=== PATIENT | female | born 1960 | race Caucasian/White ===

== ENCOUNTER 2021-08-07 07:30 | Observation (INO) ==
[2021-08-07] MEDS ORDERED: ANCEF VIAL 1 GRAM ONE (12:11)
[2021-08-07] MEDS ORDERED: NS 100 ML IV 100 ML ONE (12:12)
[2021-08-07] MEDS ORDERED: NS 1,000 ML IV 1,000 ML ONE (12:12)
[2021-08-07] MEDS ORDERED: REGLAN INJ 10 MG VIAL ONE (13:06)
[2021-08-07] MEDS ORDERED: ZOFRAN INJ 4 MG VIAL ONE (13:06)
[2021-08-07] MEDS ORDERED: BRIDION ONE (13:06)
[2021-08-07] MEDS ORDERED: PEPCID 20 MG VIAL ONE (13:06)
[2021-08-07] MEDS ORDERED: ZEMURON 100 MG VIAL ONE (13:06)
[2021-08-07] MEDS ORDERED: DIPRIVAN VIAL 20 ML ONE (13:06)
[2021-08-07] MEDS ORDERED: VERSED ONE (13:07)
[2021-08-07] MEDS ORDERED: FENTANYL VIAL INJ 100 mcg ONE (13:07)
[2021-08-07] MEDS ORDERED: PROVENTIL NEB TX 0.083% 2.5MG/ 3ML ONE (13:07)
[2021-08-07 13:09] VITALS: BMI 41.9
[2021-08-07] MEDS ORDERED: MARCAINE 0.25% INJ ONE (13:09)
[2021-08-07] MEDS ORDERED: PROVENTIL NEB TX 0.083% 2.5MG/ 3ML NEB ONE (13:11)
[2021-08-07] MEDS ORDERED: XYLOCAINE 2 % (PLAIN) ONE (13:21)
[2021-08-07] MEDS ORDERED: SUPRANE ONE ×2 (13:21→14:47)
[2021-08-07] MEDS ORDERED: TORADOL 30 MG VIAL ONE (13:52)
[2021-08-07] MEDS ORDERED: OFIRMEV IV 1000 MG VIAL 1,000 MG/100 ML VIAL IV ONE (13:52)
[2021-08-07] MEDS ORDERED: HYDROGEN PEROXIDE 3% ONE (15:39)
[2021-08-07] MEDS ORDERED: BENADRYL INJ 50 MG VIAL IVP PRN (16:00)
[2021-08-07] MEDS ORDERED: BARHEMSYS INJ IVP PRN (16:00)
[2021-08-07] MEDS ORDERED: DILAUDID INJ ONE (16:00)
[2021-08-07] MEDS ORDERED: ZOFRAN INJ 4 MG VIAL IVP PRN ×2 (16:00→16:07)
[2021-08-07] MEDS ORDERED: REGLAN INJ 10 MG VIAL IVP PRN (16:00)
[2021-08-07] MEDS ORDERED: PHENERGAN INJ 25 MG IM PRN (16:00)
[2021-08-07] MEDS: DILAUDID INJ IVP PRN ×2 (16:01→16:07)
[2021-08-07] MEDS ORDERED: TYLENOL 325 MG TAB PO PRN (16:07)
[2021-08-07] MEDS ORDERED: DILAUDID INJ IVP PRN (16:09)
[2021-08-07] MEDS ORDERED: COLACE CAP 100 MG PO SCH (21:00)
[2021-08-08 05:57] LABS: BLOOD UREA NITROGEN 24 mg/dL (7-18); CALCIUM 8.2 mg/dL (8.5-10.1); CARBON DIOXIDE 29.4 mmol/L (21-32); CHLORIDE 103 mmol/L (98-107); CREATININE 1.11 mg/dL (0.55-1.02); SODIUM 140 mmol/L (136-145); eGFR NON BLACK RACES 53 (>60)
[2021-08-08 07:19] LABS: BASOPHILS # (AUTO) 0.1 X10^3/uL (0.0-0.1); BASOPHILS % (AUTO) 0.5 % (0.2-1.0); EOSINOPHILS # (AUTO) 0.2 x10^3/uL (0.0-0.2); EOSINOPHILS % (AUTO) 2.3 % (0.9-2.9); HEMATOCRIT 35.6 % (36.0-47.0); HEMOGLOBIN 11.7 g/dL (12.0-16.0); LYMPHOCYTES # (AUTO) 1.8 X10^3/uL (1.3-2.9); LYMPHOCYTES % (AUTO) 18.1 % (21.0-51.0); MEAN CORPUSCULAR HEMOGLOBIN 28.8 pg (27.0-34.0); MEAN CORPUSCULAR VOLUME 87.3 fL (80.0-100.0); MEAN PLATELET VOLUME 9.4 fL (7.4-11.0); MONOCYTES # (AUTO) 0.7 x10^3/uL (0.3-0.8); MONOCYTES % (AUTO) 7.4 % (0.0-13.0); NEUTROPHILS # (AUTO) 7.2 x10^3/uL (2.2-4.8); NEUTROPHILS % (AUTO) 71.7 % (42.0-75.0); RED BLOOD COUNT 4.07 X10^6/uL (3.5-5.4); RED CELL DISTRIBUTION WIDTH 15.5 % (11.6-16.5)
[2021-08-08 08:41] VITALS: BP 132/72
[2021-08-08] MEDS: PERCOCET TAB 5/325 MG PO PRN ×2 (08:42→13:07)
[2021-08-08] MEDS ORDERED: LOVENOX INJ 40 MG SYR SC SCH (09:00)
[2021-08-08] MEDS ORDERED: K-DUR TAB 20 MEQ PO ONE (09:59)
[2021-08-08] MEDS ORDERED: KLOR-CON PO PRN (10:05)
[2021-08-08] MEDS ORDERED: POTASSIUM CHLORIDE LIQ 20 MEQ UDC PO PRN (10:05)
[2021-08-08] MEDS ORDERED: K-RIDER 10 MEQ/NS 100 ML 10 MEQ/100 ML BAG IV PRN (10:05)
[2021-08-08] MEDS ORDERED: POTASSIUM CHL 40 MEQ/NS 0.45% 500 ML IV PRN (10:05)
[2021-08-08] MEDS ORDERED: POTASSIUM CHL 60 MEQ/NS 0.45% 500 ML IV PRN (10:05)
[2021-08-08] MEDS ORDERED: K-DUR TAB 20 MEQ PO PRN (10:05)
[2021-08-08] MEDS ORDERED: MICRO K EXTEN CAP 10 MEQ PO PRN (10:05)
--- NOTE | 2021-08-08 12:13 | PCM.PROG ---
Progress Note Progress Note for Day of Date of Exam: 08/08/21 Subjective Subjective: Mrs. Cramer is 61 yo female who is s/p left LE reconstructions with application of ex-fix. She is doing well with no pain. She is with VSS and NAD. She denies any f/c/n/v/sob/calf pain. Past Medical Family Social History Past Med/Fam/Surg Hx: No changes since H&P Allergies: Allergies No Known Drug Allergies Allergy (Verified 08/07/21 12:42) Vital Signs and I&O's Vital Signs: Temperature 99.1 F Pulse Rate [Left Radial] 80 Pulse Rate 69 Respiratory Rate 16 Blood Pressure [Left Arm] 132/72 Blood Pressure 135/65 O2 Sat by Pulse Oximetry 96 Intake and Output: Intake & Output 08/05/21 08/06/21 08/07/21 08/08/21 23:59 23:59 23:59 23:59 Intake Total 2523 / 2523 80 / 80 Output Total 2048 / 2048 Balance 475 / 475 80 / 80 Physical Exam Musculoskeletal: Left (Left LE with ex -fix applied. Dressing c/d/i with no strike through. Patient able to move digits. No senstion to the digits. Cap fill less than 3 secs. ) Mood Description: Calm Speech Pattern: Clear and Appropriate Laboratory and Diagnostics Result Diagrams: 08/08/21 05:17 08/08/21 05:17 Labs: Laboratory WBC 10.0 X10^3/uL (3.6-10.0) 08/08/21 05:17 RBC 4.07 X10^6/uL (3.5-5.4) 08/08/21 05:17 Hgb 11.7 g/dL (12.0-16.0) L 08/08/21 05:17 Hct 35.6 % (36.0-47.0) L 08/08/21 05:17 MCV 87.3 fL (80.0-100.0) 08/08/21 05:17 MCH 28.8 pg (27.0-34.0) 08/08/21 05:17 MCHC 33.0 g/dL (33.0-35.0) 08/08/21 05:17 RDW 15.5 % (11.6-16.5) 08/08/21 05:17 Plt Count 224 X10^3/uL (150.0-450.0) 08/08/21 05:17 MPV 9.4 fL (7.4-11.0) 08/08/21 05:17 Neut % (Auto) 71.7 % (42.0-75.0) 08/08/21 05:17 Lymph % (Auto) 18.1 % (21.0-51.0) L 08/08/21 05:17 [place] % (Auto) 7.4 % (0.0-13.0) 08/08/21 05:17 Eos % (Auto) 2.3 % (0.9-2.9) 08/08/21 05:17 Baso % (Auto) 0.5 % (0.2-1.0) 08/08/21 05:17 Neut # (Auto) 7.2 x10^3/uL (2.2-4.8) H 08/08/21 05:17 Lymph # (Auto) 1.8 X10^3/uL (1.3-2.9) 08/08/21 05:17 [place] # (Auto) 0.7 x10^3/uL (0.3-0.8) 08/08/21 05:17 Eos # (Auto) 0.2 x10^3/uL (0.0-0.2) 08/08/21 05:17 Baso # (Auto) 0.1 X10^3/uL (0.0-0.1) 08/08/21 05:17 Absolute Nucleated RBC 0.1 /100WBC 08/08/21 05:17 Sodium 140 mmol/L (136-145) 08/08/21 05:17 Corrected Sodium TNP 08/08/21 05:17 Potassium 3.0 mmol/L (3.5-5.1) L* 08/08/21 05:17 Chloride 103 mmol/L (98-107) 08/08/21 05:17 Carbon Dioxide 29.4 mmol/L (21-32) 08/08/21 05:17 BUN 24 mg/dL (7-18) H 08/08/21 05:17 Creatinine 1.11 mg/dL (0.55-1.02) H 08/08/21 05:17 Est GFR (MDRD) Af Amer > 60 (>60) 08/08/21 05:17 Est GFR (MDRD) Non-Af 53 (>60) L 08/08/21 05:17 Glucose 104 mg/dL (65-99) H 08/08/21 05:17 Calcium 8.2 mg/dL (8.5-10.1) L 08/08/21 05:17 SARS CoV-2 RNA Rapid LINDA Negative (NEGATIVE) 08/07/21 12:42 Plan (1) Charcot's joint of left ankle: Status: Acute Plan: Mrs. Cramer is s/p left LE surgery with application of Ex/fix, DOS was 3. She is doing well with no pain, VSS and NAD. Plan: Keep dressing intact Elevated 2 pillows NWB on the Left LE Pending PT eval Rx's in the chart Patient is to follow up with Dr. Gonzalez in clinic. Once patient is stable and pain well controlled we are of for discharge. Please do hesitate to contact me with questions or concerns. Tyler Thomas DPM Fellow [phone]
== END 2021-08-08 13:10 | disposition home or self-care (01) ==
LOC: MED/SURG → EDUNIT# 07:30
PROVIDERS: ADMIT Obstetrics & Gynecology Obstetrics; ATTEND Obstetrics & Gynecology Obstetrics
PROC: APEXFIX (2021-08-07 12:15)

== ENCOUNTER 2021-08-22 17:30 | Inpatient (IN) ==
[2021-08-22] MEDS ORDERED: NS 1,000 ML IV 1,000 ML IV ONE (17:57)
--- NOTE | 2021-08-22 18:07 | DR.EXTPAIN ---
HPI Time seen Time Seen by Provider: 08/22/21 17:56 PCP Primary Care Physician: Misael Complaint/Symptoms Chief Complaint Doctor Comments: 61 y/o female sent over for admission. Had an external fixator placed 08/07, due to Chacot foot. Started with swelling, erythema and d/c several days ago. Was started on cephalexin several days ago as well. Has h/o chronic neuropathy. Having some pain of the left foot/leg, dull, constant, does not radiate. Is worse with ambulation, nothing makes it better. Denies fever, chills, cough, dyspnea, nausea or vomiting. No changes in bowel/bladder. Chief Complaint:: Pt states she was sent to the ED by Dr Gonzalez for admission and IV antibiotics, pt has an external fixator in place from 08/07/21. Pt states the site is infected and has swelling, drainage, and has been running intermittent f ever. Pt reports she has been on antibiotics since Thursday. COVID-19 Coronavirus risk:travel/contact w/high risk person: No Has patient experienced Coronavirus symptoms: No Nurses notes reviewed Nurses Notes Review: Yes Source History Provided: Patient and Significant Other Mode of arrival Mode of Arrival: Wheelchair Timing Onset of Chief Complaint: 08/17/21 PMH PMH Past Medical History: Yes Past Medical History: GERD, Hypertension and Hypothyroidism Past Medical History Comment: fibromyalgia, neuropathy, h/ Charcot joint Past Surgical History: Yes Surgical History: Appendectomy, Hysterectomy and Other Past Surgical History Comment: left lower leg Family History History of Family Medical Conditions: Yes Family Medical History: Diabetes Mellitus, Cancer, Coronary Artery Disease and Hypertension Social History Alcohol Use: None Do you use any recreational Drugs:: No Lives With: Spouse Lives Where: Home Travel Risk Coronavirus risk:travel/contact w/high risk person: No Has patient experienced Coronavirus symptoms: No Infectious screening Have you traveled outside the country in the last 6 months?: No Isolation: Standard ROS Review of Systems Constitutional: No Symptoms Reported Eyes: No Symptoms Reported ENTM: No Symptoms Reported Respiratoy: No Symptoms Reported Cardiovascular: No Symptoms Reported Gastrointestinal/Abdominal: No Symptoms Reported Genitourinary: No Symptoms Reported Neurological: No Symptoms Reported Musculoskeletal: Left, Leg and Foot Integumentary: Wound (surgical, LLE) Hematologic/Lymphatic: No Symptoms Reported Psychiatric: No Symptoms Reported All Other Systems: Reviewed and Negative PE Vital Signs Vitals: Temperature 96.8 F Pulse Rate 63 Respiratory Rate 18 Blood Pressure [Left Arm] 132/72 O2 Sat by Pulse Oximetry 97 General Limitations: No Limitations General Appearance: Alert and In No Apparent Distress Head Head Exam: Normal Inspection Eyes Eye exam: PERRL and EOMI ENT ENT Exam: Normal Exam Neck Neck Exam: Normal Inspection and Full ROM Chest Chest Inspection: Normal Inspection Respiratory Respiratory Exam: Normal Lung Sounds Bilat; negative Accessory Muscle Use and Respiratory Distress Respiratory Exam: Bilateral: Clear to Auscultation Cardiovascular Cardiovascular Exam: Regular Rate, Normal Rhythm and Normal Heart Sounds Abdominal Exam Abdominal Exam: Normal Inspection and Soft; negative Tenderness Lower Extremities Lower Leg Exam: Swelling (LLE, external fixator in place, + purulent drainage from several of the surgical wounds, + confluent erythema. 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 Having infection of her LLE, s/p external fixator placement 2 weeks ago. W/u initiated. 2009 - labs acceptable. Pt presented to covering hospitalist, Dr Ruvalcaba, will admit. Will consult with Dr Gonzalez, reportedly planning to remove the external fixator tomorrow. Will treat with IV Zosyn, and use IV dilaudid prn pain. ROR Labs Reviewed Laboratory Results Reviewed?: Yes Result Diagrams: 08/22/21 18:07 08/22/21 18:07 Laboratory: WBC 11.3 X10^3/uL (3.6-10.0) H 08/22/21 18:07 RBC 4.22 X10^6/uL (3.5-5.4) 08/22/21 18:07 Hgb 11.9 g/dL (12.0-16.0) L 08/22/21 18:07 Hct 36.2 % (36.0-47.0) 08/22/21 18:07 MCV 85.7 fL (80.0-100.0) 08/22/21 18:07 MCH 28.2 pg (27.0-34.0) 08/22/21 18:07 MCHC 32.9 g/dL (33.0-35.0) L 08/22/21 18:07 RDW 15.2 % (11.6-16.5) 08/22/21 18:07 Plt Count 319 X10^3/uL (150.0-450.0) 08/22/21 18:07 MPV 8.6 fL (7.4-11.0) 08/22/21 18:07 Neut % (Auto) 74.2 % (42.0-75.0) 08/22/21 18:07 Lymph % (Auto) 17.3 % (21.0-51.0) L 08/22/21 18:07 [place] % (Auto) 2.7 % (0.0-13.0) 08/22/21 18:07 Eos % (Auto) 5.1 % (0.9-2.9) H 08/22/21 18:07 Baso % (Auto) 0.7 % (0.2-1.0) 08/22/21 18:07 Neut # (Auto) 8.4 x10^3/uL (2.2-4.8) H 08/22/21 18:07 Lymph # (Auto) 2.0 X10^3/uL (1.3-2.9) 08/22/21 18:07 [place] # (Auto) 0.3 x10^3/uL (0.3-0.8) 08/22/21 18:07 Eos # (Auto) 0.6 x10^3/uL (0.0-0.2) H 08/22/21 18:07 Baso # (Auto) 0.1 X10^3/uL (0.0-0.1) 08/22/21 18:07 Absolute Nucleated RBC 0.1 /100WBC 08/22/21 18:07 Sodium 134 mmol/L (136-145) L 08/22/21 18:07 Corrected Sodium 135 mmol/L (136-145) L 08/22/21 18:07 Potassium 3.5 mmol/L (3.5-5.1) 08/22/21 18:07 Chloride 98 mmol/L (98-107) 08/22/21 18:07 Carbon Dioxide 29.2 mmol/L (21-32) 08/22/21 18:07 BUN 22 mg/dL (7-18) H 08/22/21 18:07 Creatinine 1.09 mg/dL (0.55-1.02) H 08/22/21 18:07 Est GFR (MDRD) Af Amer > 60 (>60) 08/22/21 18:07 Est GFR (MDRD) Non-Af 54 (>60) L 08/22/21 18:07 Glucose 160 mg/dL (65-99) H 08/22/21 18:07 Lactic Acid 1.4 mmol/L (0.4-2.0) 08/22/21 18:07 Calcium 8.7 mg/dL (8.5-10.1) 08/22/21 18:07 Corrected Calcium 9.7 mg/dL (8.5-10.1) 08/22/21 18:07 Total Bilirubin 0.20 mg/dL (0.2-1.0) 08/22/21 18:07 AST 11 Units/L (15-37) L 08/22/21 18:07 ALT 17 Units/L (12-78) 08/22/21 18:07 Alkaline Phosphatase 113 Units/L (46-116) 08/22/21 18:07 Total Protein 7.1 g/dL (6.4-8.2) 08/22/21 18:07 Albumin 2.8 g/dL (3.4-5.0) L 08/22/21 18:07 Globulin 4.3 g/dL (2.5-4.5) 08/22/21 18:07 Albumin/Globulin Ratio 0.7 Ratio (1.1-2.1) L 08/22/21 18:07 Specimen Type Clean catch urine 08/22/21 18:15 Urine Color Yellow (YELLOW) 08/22/21 18:15 Urine Appearance Clear (CLEAR) 08/22/21 18:15 Urine pH 7.0 (5.0 - 8.0) 08/22/21 18:15 Ur Specific [place] 1.005 (1.000-1.030) 08/22/21 18:15 Urine Protein Negative (NEGATIVE) 08/22/21 18:15 Urine Glucose (UA) Negative (NEGATIVE) 08/22/21 18:15 Urine Ketones Negative (NEGATIVE) 08/22/21 18:15 Urine Blood Negative (NEGATIVE) 08/22/21 18:15 Urine Nitrite Negative (NEGATIVE) 08/22/21 18:15 Urine Bilirubin Negative (NEGATIVE) 08/22/21 18:15 Urine Urobilinogen Normal (NORMAL) 08/22/21 18:15 Ur Leukocyte Esterase Negative (NEGATIVE) 08/22/21 18:15 SARS CoV-2 RNA Rapid LINDA Negative (NEGATIVE) 08/22/21 18:06 Other Results Comments: Labs acceptable. Opioid Opioid Risk Tool Age (Tomas box if 16-45): No Total: 0 Total Score Risk Category: Low Risk Copyright: Rosas LESTER predicting aberrant behaviors Diagnosis Discharge Problem: Cellulitis of left leg
[2021-08-22] MEDS ORDERED: NS 1,000 ML IV 1,000 ML ONE (18:12)
[2021-08-22 18:31] LABS: BASOPHILS # (AUTO) 0.1 X10^3/uL (0.0-0.1); EOSINOPHILS # (AUTO) 0.6 x10^3/uL (0.0-0.2); EOSINOPHILS % (AUTO) 5.1 % (0.9-2.9); HEMATOCRIT 36.2 % (36.0-47.0); HEMOGLOBIN 11.9 g/dL (12.0-16.0); MEAN CORPUSCULAR HGB CONC 32.9 g/dL (33.0-35.0); MONOCYTES # (AUTO) 0.3 x10^3/uL (0.3-0.8); WHITE BLOOD COUNT 11.3 X10^3/uL (3.6-10.0)
[2021-08-22 18:37] LABS: BASOPHILS % (AUTO) 0.7 % (0.2-1.0); LYMPHOCYTES % (AUTO) 17.3 % (21.0-51.0); MEAN CORPUSCULAR HEMOGLOBIN 28.2 pg (27.0-34.0); MEAN CORPUSCULAR VOLUME 85.7 fL (80.0-100.0); MEAN PLATELET VOLUME 8.6 fL (7.4-11.0); MONOCYTES % (AUTO) 2.7 % (0.0-13.0); NEUTROPHILS # (AUTO) 8.4 x10^3/uL (2.2-4.8); NEUTROPHILS % (AUTO) 74.2 % (42.0-75.0); RED BLOOD COUNT 4.22 X10^6/uL (3.5-5.4); RED CELL DISTRIBUTION WIDTH 15.2 % (11.6-16.5)
[2021-08-22 18:40] LABS: ALANINE AMINOTRANSFERASE 17 Units/L (12-78); ALBUMIN 2.8 g/dL (3.4-5.0); ALKALINE PHOSPHATASE 113 Units/L (46-116); ASPARTATE AMINO TRANSFERASE 11 Units/L (15-37); BLOOD UREA NITROGEN 22 mg/dL (7-18); CALCIUM 8.7 mg/dL (8.5-10.1); CARBON DIOXIDE 29.2 mmol/L (21-32); CHLORIDE 98 mmol/L (98-107); COR CA(FOR HYPOALB) 9.7 mg/dL (8.5-10.1); COR NA(FOR HYPERGLY) 135 mmol/L (136-145); CREATININE 1.09 mg/dL (0.55-1.02); SODIUM 134 mmol/L (136-145); TOTAL PROTEIN 7.1 g/dL (6.4-8.2); eGFR NON BLACK RACES 54 (>60)
[2021-08-22 18:43] LABS: LACTIC ACID 1.4 mmol/L (0.4-2.0)
[2021-08-22 18:52] LABS: BILIRUBIN,URINE NEGATIVE (NEGATIVE); BLOOD/HEMOGLOBIN,URINE NEGATIVE (NEGATIVE); GLUCOSE, URINE NEGATIVE (NEGATIVE); KETONES,URINE NEGATIVE (NEGATIVE); LEUKOCYTE ESTERASE ,URINE NEGATIVE (NEGATIVE); NITRITES,URINE NEGATIVE (NEGATIVE); PROTEIN,URINE NEGATIVE (NEGATIVE); UROBILINOGEN,URINE NORMAL (NORMAL)
[2021-08-22 19:01] LABS: APPEARANCE,URINE CLEAR (CLEAR); COLOR,URINE YELLOW (YELLOW)
[2021-08-22] MEDS ORDERED: ZOSYN VIAL 3.375 GRAMS 3.375 G in NS 100 ML IV 100 ML IV ONE (19:05)
[2021-08-22] MEDS ORDERED: ZOSYN VIAL 3.375 GRAMS IV ONE (19:11)
[2021-08-22] MEDS ORDERED: NS 100 ML IV 100 ML ONE (19:12)
[2021-08-22] MEDS ORDERED: DILAUDID INJ IVP ONE (19:40)
[2021-08-22] MEDS ORDERED: ZOFRAN INJ 4 MG VIAL ONE (19:48)
[2021-08-22] MEDS ORDERED: DILAUDID INJ ONE (19:48)
[2021-08-22] MEDS ORDERED: ZOFRAN INJ 4 MG VIAL IVP ONE (19:57)
[2021-08-22] MEDS ORDERED: ZOSYN VIAL 2.25 GRAMS 2.25 G in NS 100 ML IV 100 ML IV SCH (21:58)
[2021-08-22] MEDS ORDERED: ZOFRAN INJ 4 MG VIAL IVP PRN (21:58)
[2021-08-22] MEDS: D5 1/2 NS 1,000 ML 1,000 ML IV SCH (23:30)
[2021-08-23] MEDS: DILAUDID INJ IVP PRN ×4 (00:30→20:20)
[2021-08-23] MEDS ORDERED: ZOSYN VIAL 2.25 GRAMS ONE (00:49)
[2021-08-23] MEDS ORDERED: NS 100 ML IV 100 ML ONE ×2 (00:50→10:44)
[2021-08-23] MEDS: ZOSYN VIAL 2.25 GRAMS 2.25 G in NS 100 ML IV 100 ML IV SCH ×3 (03:12→21:40)
[2021-08-23 06:23] LABS: BASOPHILS # (AUTO) 0.1 X10^3/uL (0.0-0.1); BASOPHILS % (AUTO) 0.9 % (0.2-1.0); EOSINOPHILS # (AUTO) 0.6 x10^3/uL (0.0-0.2); HEMOGLOBIN 11.1 g/dL (12.0-16.0); LYMPHOCYTES # (AUTO) 2.3 X10^3/uL (1.3-2.9); LYMPHOCYTES % (AUTO) 19.4 % (21.0-51.0); MEAN CORPUSCULAR HEMOGLOBIN 27.7 pg (27.0-34.0); MEAN CORPUSCULAR HGB CONC 32.6 g/dL (33.0-35.0); MEAN CORPUSCULAR VOLUME 85.2 fL (80.0-100.0); MEAN PLATELET VOLUME 8.4 fL (7.4-11.0); MONOCYTES # (AUTO) 0.7 x10^3/uL (0.3-0.8); NEUTROPHILS # (AUTO) 8.2 x10^3/uL (2.2-4.8); NEUTROPHILS % (AUTO) 68.7 % (42.0-75.0); RED BLOOD COUNT 3.99 X10^6/uL (3.5-5.4)
[2021-08-23 06:33] LABS: ALANINE AMINOTRANSFERASE 16 Units/L (12-78); ALBUMIN 2.7 g/dL (3.4-5.0); ALKALINE PHOSPHATASE 103 Units/L (46-116); ASPARTATE AMINO TRANSFERASE 9 Units/L (15-37); BLOOD UREA NITROGEN 20 mg/dL (7-18); CALCIUM 8.4 mg/dL (8.5-10.1); CARBON DIOXIDE 27.8 mmol/L (21-32); CHLORIDE 100 mmol/L (98-107); COR CA(FOR HYPOALB) 9.4 mg/dL (8.5-10.1); CREATININE 1.09 mg/dL (0.55-1.02); SODIUM 134 mmol/L (136-145); TOTAL PROTEIN 6.7 g/dL (6.4-8.2); eGFR NON BLACK RACES 54 (>60)
--- NOTE | 2021-08-23 08:48 | DR.H&P ---
H&P History & Physical for Day of: H&P Date: 08/22/21 Chief Complaint Chief Complaint: Infected left foot. Allergies Allergies Allergy/AdvReac Type Severity Reaction Status Date / Time No Known Drug Allergies Allergy Verified 08/22/21 17:38 History of Present Illness History of Present Illness: This is a 61-year-old white female who was sent to the emergency department by her Cloth Inspector, Dr. Gonzalez for cellulitis of her left leg. The patient the left leg that was placed on 08/07/2021 for a Charcot foot. She reports swelling, erythema that started several days ago. She reports pain in the foot and lower leg that is dull, constant does not radiate. It is worse with ambulation nothing makes it better she reports. She was placed on cephalexin for several days with no improvement in her symptoms. Her reaming machine operator for plastic thought it best to put her in the hospital for IV antibiotic treatment. Past Medical History Past Medical History: GERD, Hypertension and Hypothyroidism Past Surgical History Surgical History: Hysterectomy and Ortho Surgery Family History Family Medical History: Diabetes Mellitus, Cancer and Hypertension Social History Does patient currently use any type of tobacco product: Yes Have you used tobacco products in the last 12 months: Yes Type of Tobacco Use: Cigarettes Does any household member use tobacco: Yes Alcohol Use: None Drug Use: None Medications Home Medications: No Known Drug Allergies Allergy (Verified 08/22/21 17:38) Labs Result Diagrams: 08/23/21 05:42 08/23/21 05:42 Labs: 08/22/21 18:15 Leg - Left Wound Gram Stain - Final Laboratory WBC 12.0 X10^3/uL (3.6-10.0) H 08/23/21 05:42 RBC 3.99 X10^6/uL (3.5-5.4) 08/23/21 05:42 Hgb 11.1 g/dL (12.0-16.0) L 08/23/21 05:42 Hct 34.0 % (36.0-47.0) L 08/23/21 05:42 MCV 85.2 fL (80.0-100.0) 08/23/21 05:42 MCH 27.7 pg (27.0-34.0) 08/23/21 05:42 MCHC 32.6 g/dL (33.0-35.0) L 08/23/21 05:42 RDW 15.0 % (11.6-16.5) 08/23/21 05:42 Plt Count 344 X10^3/uL (150.0-450.0) 08/23/21 05:42 MPV 8.4 fL (7.4-11.0) 08/23/21 05:42 Neut % (Auto) 68.7 % (42.0-75.0) 08/23/21 05:42 Lymph % (Auto) 19.4 % (21.0-51.0) L 08/23/21 05:42 [place] % (Auto) 6.0 % (0.0-13.0) 08/23/21 05:42 Eos % (Auto) 5.0 % (0.9-2.9) H 08/23/21 05:42 Baso % (Auto) 0.9 % (0.2-1.0) 08/23/21 05:42 Neut # (Auto) 8.2 x10^3/uL (2.2-4.8) H 08/23/21 05:42 Lymph # (Auto) 2.3 X10^3/uL (1.3-2.9) 08/23/21 05:42 [place] # (Auto) 0.7 x10^3/uL (0.3-0.8) 08/23/21 05:42 Eos # (Auto) 0.6 x10^3/uL (0.0-0.2) H 08/23/21 05:42 Baso # (Auto) 0.1 X10^3/uL (0.0-0.1) 08/23/21 05:42 Absolute Nucleated RBC 0.0 /100WBC 08/23/21 05:42 Sodium 134 mmol/L (136-145) L 08/23/21 05:42 Corrected Sodium TNP 08/23/21 05:42 Potassium 3.7 mmol/L (3.5-5.1) 08/23/21 05:42 Chloride 100 mmol/L (98-107) 08/23/21 05:42 Carbon Dioxide 27.8 mmol/L (21-32) 08/23/21 05:42 BUN 20 mg/dL (7-18) H 08/23/21 05:42 Creatinine 1.09 mg/dL (0.55-1.02) H 08/23/21 05:42 Est GFR (MDRD) Af Amer > 60 (>60) 08/23/21 05:42 Est GFR (MDRD) Non-Af 54 (>60) L 08/23/21 05:42 Glucose 104 mg/dL (65-99) H 08/23/21 05:42 Lactic Acid 1.4 mmol/L (0.4-2.0) 08/22/21 18:07 Calcium 8.4 mg/dL (8.5-10.1) L 08/23/21 05:42 Corrected Calcium 9.4 mg/dL (8.5-10.1) 08/23/21 05:42 Total Bilirubin 0.20 mg/dL (0.2-1.0) 08/23/21 05:42 AST 9 Units/L (15-37) L 08/23/21 05:42 ALT 16 Units/L (12-78) 08/23/21 05:42 Alkaline Phosphatase 103 Units/L (46-116) 08/23/21 05:42 Total Protein 6.7 g/dL (6.4-8.2) 08/23/21 05:42 Albumin 2.7 g/dL (3.4-5.0) L 08/23/21 05:42 Globulin 4.0 g/dL (2.5-4.5) 08/23/21 05:42 Albumin/Globulin Ratio 0.7 Ratio (1.1-2.1) L 08/23/21 05:42 Specimen Type Clean catch urine 08/22/21 18:15 Urine Color Yellow (YELLOW) 08/22/21 18:15 Urine Appearance Clear (CLEAR) 08/22/21 18:15 Urine pH 7.0 (5.0 - 8.0) 08/22/21 18:15 Ur Specific [place] 1.005 (1.000-1.030) 08/22/21 18:15 Urine Protein Negative (NEGATIVE) 08/22/21 18:15 Urine Glucose (UA) Negative (NEGATIVE) 08/22/21 18:15 Urine Ketones Negative (NEGATIVE) 08/22/21 18:15 Urine Blood Negative (NEGATIVE) 08/22/21 18:15 Urine Nitrite Negative (NEGATIVE) 08/22/21 18:15 Urine Bilirubin Negative (NEGATIVE) 08/22/21 18:15 Urine Urobilinogen Normal (NORMAL) 08/22/21 18:15 Ur Leukocyte Esterase Negative (NEGATIVE) 08/22/21 18:15 SARS CoV-2 RNA Rapid LINDA Negative (NEGATIVE) 08/22/21 18:06 Review of Systems Constitutional: Weakness Eyes: No Symptoms Reported ENT: No Symptoms Reported Respiratory: No Symptoms Reported Cardiovascular: No Symptoms Reported Gastrointestinal: No Symptoms Reported Genitourinary: No Symptoms Reported Musculoskeletal: Leg Pain and Foot Pain Skin: Wound Neurological: No Symptoms Reported and Numbness Physical Exam Vital Signs: Temperature 98.1 F Pulse Rate [Left] 79 Pulse Rate 63 Respiratory Rate 22 Blood Pressure [Left Arm] 125/62 O2 Sat by Pulse Oximetry 90 Oriented: Normal, Time, Person and Place Eyes: Normal Ear: Normal Nose: Normal Throat: Normal Respiratory: Clear Throughout Cardiovascular: Normal : Normal Auscultation: Bowel Sounds: Normal Palpation: Normal Tenderness: Normal Skin: Normal Musculoskeletal: Normal Psychiatric: Normal Mood Description: Calm Affect: Normal Speech Pattern: Clear and Appropriate Assessment/Plan (1) Cellulitis of left leg: Status: Acute Plan: Patient is currently on IV Zosyn. Follow with wound culture's when available. (2) Charcot's joint of left ankle: Status: Acute Plan: The patient's reaming machine operator for plastic, Dr. Gonzalez is to see patient later this morning. (3) Hypertension: Status: Acute Plan: Continue metoprolol 50 mg twice a day I will hold the patient triamterene/HCTZ since she is mildly dehydrated. Monitor the patient's blood pressure. (4) Hypothyroidism: Status: Acute Plan: Resume levothyroxine at 200 mcg by mouth daily. (5) GERD (gastroesophageal reflux disease): Status: Acute Review H&P Reviewed: Yes Patient was examined?: Yes
[2021-08-23] MEDS: D5 1/2 NS 1,000 ML 1,000 ML IV SCH (09:11)
--- NOTE | 2021-08-23 09:34 | PCM.PROG ---
Progress Note Progress Note for Day of Date of Exam: 08/23/21 Subjective Subjective: The patient is alert and awake this morning. No complaints this morning. It is noted that her mild dehydration slightly approved with her BUN down from 22 to 20. The patient's regulatory internship is to see her later this morning. Past Medical Family Social History Past Med/Fam/Surg Hx: No changes since H&P Allergies: Allergies No Known Drug Allergies Allergy (Verified 08/22/21 17:38) Review of Systems ROS: No change since H&P Vital Signs and I&O's Vital Signs: Temperature 98.1 F Pulse Rate [Left] 79 Pulse Rate 63 Respiratory Rate 20 Blood Pressure [Left Arm] 125/62 O2 Sat by Pulse Oximetry 90 Intake and Output: Intake & Output 08/20/21 08/21/21 08/22/21 08/23/21 11:59 11:59 11:59 11:59 Intake Total 1220 / 1220 Balance 1220 / 1220 Physical Exam Oriented: Normal, Time, Person and Place Eyes: Normal Ear: Normal Nose: Normal Throat: Normal Respiratory: Normal Cardiovascular: Normal : Normal Auscultation: Bowel Sounds: Normal Tenderness: Normal Skin: Normal Musculoskeletal: Normal Psychiatric: Normal Mood Description: Calm Affect: Normal Speech Pattern: Clear and Appropriate Laboratory and Diagnostics Result Diagrams: 08/23/21 05:42 08/23/21 05:42 Labs: 08/22/21 18:15 Leg - Left Wound Gram Stain - Final Laboratory WBC 12.0 X10^3/uL (3.6-10.0) H 08/23/21 05:42 RBC 3.99 X10^6/uL (3.5-5.4) 08/23/21 05:42 Hgb 11.1 g/dL (12.0-16.0) L 08/23/21 05:42 Hct 34.0 % (36.0-47.0) L 08/23/21 05:42 MCV 85.2 fL (80.0-100.0) 08/23/21 05:42 MCH 27.7 pg (27.0-34.0) 08/23/21 05:42 MCHC 32.6 g/dL (33.0-35.0) L 08/23/21 05:42 RDW 15.0 % (11.6-16.5) 08/23/21 05:42 Plt Count 344 X10^3/uL (150.0-450.0) 08/23/21 05:42 MPV 8.4 fL (7.4-11.0) 08/23/21 05:42 Neut % (Auto) 68.7 % (42.0-75.0) 08/23/21 05:42 Lymph % (Auto) 19.4 % (21.0-51.0) L 08/23/21 05:42 [place] % (Auto) 6.0 % (0.0-13.0) 08/23/21 05:42 Eos % (Auto) 5.0 % (0.9-2.9) H 08/23/21 05:42 Baso % (Auto) 0.9 % (0.2-1.0) 08/23/21 05:42 Neut # (Auto) 8.2 x10^3/uL (2.2-4.8) H 08/23/21 05:42 Lymph # (Auto) 2.3 X10^3/uL (1.3-2.9) 08/23/21 05:42 [place] # (Auto) 0.7 x10^3/uL (0.3-0.8) 08/23/21 05:42 Eos # (Auto) 0.6 x10^3/uL (0.0-0.2) H 08/23/21 05:42 Baso # (Auto) 0.1 X10^3/uL (0.0-0.1) 08/23/21 05:42 Absolute Nucleated RBC 0.0 /100WBC 08/23/21 05:42 Sodium 134 mmol/L (136-145) L 08/23/21 05:42 Corrected Sodium TNP 08/23/21 05:42 Potassium 3.7 mmol/L (3.5-5.1) 08/23/21 05:42 Chloride 100 mmol/L (98-107) 08/23/21 05:42 Carbon Dioxide 27.8 mmol/L (21-32) 08/23/21 05:42 BUN 20 mg/dL (7-18) H 08/23/21 05:42 Creatinine 1.09 mg/dL (0.55-1.02) H 08/23/21 05:42 Est GFR (MDRD) Af Amer > 60 (>60) 08/23/21 05:42 Est GFR (MDRD) Non-Af 54 (>60) L 08/23/21 05:42 Glucose 104 mg/dL (65-99) H 08/23/21 05:42 Lactic Acid 1.4 mmol/L (0.4-2.0) 08/22/21 18:07 Calcium 8.4 mg/dL (8.5-10.1) L 08/23/21 05:42 Corrected Calcium 9.4 mg/dL (8.5-10.1) 08/23/21 05:42 Total Bilirubin 0.20 mg/dL (0.2-1.0) 08/23/21 05:42 AST 9 Units/L (15-37) L 08/23/21 05:42 ALT 16 Units/L (12-78) 08/23/21 05:42 Alkaline Phosphatase 103 Units/L (46-116) 08/23/21 05:42 Total Protein 6.7 g/dL (6.4-8.2) 08/23/21 05:42 Albumin 2.7 g/dL (3.4-5.0) L 08/23/21 05:42 Globulin 4.0 g/dL (2.5-4.5) 08/23/21 05:42 Albumin/Globulin Ratio 0.7 Ratio (1.1-2.1) L 08/23/21 05:42 Specimen Type Clean catch urine 08/22/21 18:15 Urine Color Yellow (YELLOW) 08/22/21 18:15 Urine Appearance Clear (CLEAR) 08/22/21 18:15 Urine pH 7.0 (5.0 - 8.0) 08/22/21 18:15 Ur Specific [place] 1.005 (1.000-1.030) 08/22/21 18:15 Urine Protein Negative (NEGATIVE) 08/22/21 18:15 Urine Glucose (UA) Negative (NEGATIVE) 08/22/21 18:15 Urine Ketones Negative (NEGATIVE) 08/22/21 18:15 Urine Blood Negative (NEGATIVE) 08/22/21 18:15 Urine Nitrite Negative (NEGATIVE) 08/22/21 18:15 Urine Bilirubin Negative (NEGATIVE) 08/22/21 18:15 Urine Urobilinogen Normal (NORMAL) 08/22/21 18:15 Ur Leukocyte Esterase Negative (NEGATIVE) 08/22/21 18:15 SARS CoV-2 RNA Rapid LINDA Negative (NEGATIVE) 08/22/21 18:06 Plan (1) Cellulitis of left leg: Status: Acute Plan: Patient is currently on IV Zosyn. Follow with wound culture's when available. (2) Charcot's joint of left ankle: Status: Acute Plan: The patient's regulatory internship, Dr. Gonzalez is to see patient later this morning. I would restart the patient's pregabalin 150 mg by mouth twice a day. (3) Hypertension: Status: Acute Plan: Continue metoprolol 50 mg twice a day I will hold the patient triamterene/HCTZ since she is mildly dehydrated. Monitor the patient's blood pressure. (4) Hypothyroidism: Status: Acute Plan: Resume levothyroxine at 200 mcg by mouth daily. (5) GERD (gastroesophageal reflux disease): Status: Acute Plan: I will continue the patient on pantoprazole 40 mg daily and famotidine 40 mg daily.
[2021-08-23] MEDS ORDERED: BETADINE SOLN ONE (10:09)
[2021-08-23] MEDS ORDERED: DIPRIVAN VIAL 20 ML ONE (10:22)
[2021-08-23] MEDS ORDERED: XYLOCAINE 2 % (PLAIN) ONE (10:22)
[2021-08-23] MEDS ORDERED: KETAMINE 50 MG/5 ML-NACL SYRNG ONE (10:23)
[2021-08-23] MEDS ORDERED: ZOFRAN INJ 4 MG VIAL ONE (10:23)
[2021-08-23] MEDS ORDERED: TORADOL 30 MG VIAL ONE (10:23)
[2021-08-23] MEDS ORDERED: OFIRMEV IV 1000 MG VIAL 1,000 MG/100 ML VIAL IV ONE (10:23)
[2021-08-23] MEDS ORDERED: FENTANYL VIAL INJ 100 mcg ONE (10:24)
[2021-08-23] MEDS ORDERED: VERSED ONE (10:25)
[2021-08-23] MEDS ORDERED: ANCEF VIAL 1 GRAM ONE (10:43)
[2021-08-23] MEDS ORDERED: LR 1,000 ML IV 1,000 ML IV ONE (10:43)
[2021-08-23] MEDS ORDERED: MARCAINE 0.25% INJ ONE (10:48)
[2021-08-23] MEDS: LYRICA CAP 150 mg PO SCH ×2 (15:02→21:40)
[2021-08-23] MEDS: PROTONIX TAB 40 MG PO SCH (15:03)
[2021-08-23] MEDS: PEPCID TAB 40 MG PO SCH (15:03)
[2021-08-23] MEDS: SYNTHROID 100 mcg TAB PO SCH (15:03)
[2021-08-23] MEDS: LOPRESSOR TAB 50 MG PO SCH (15:15)
[2021-08-23 20:52] VITALS: BMI 44.6
[2021-08-23] MEDS: EFFEXOR XR 75 MG CAP 24-HR PO SCH (21:40)
[2021-08-24] MEDS: DILAUDID INJ IVP PRN ×3 (00:33→21:22)
[2021-08-24] MEDS: D5 1/2 NS 1,000 ML 1,000 ML IV SCH ×2 (04:42→06:46)
[2021-08-24] MEDS: ZOSYN VIAL 2.25 GRAMS 2.25 G in NS 100 ML IV 100 ML IV SCH ×3 (04:42→20:45)
[2021-08-24 06:59] LABS: BASOPHILS # (AUTO) 0.1 X10^3/uL (0.0-0.1); EOSINOPHILS # (AUTO) 0.4 x10^3/uL (0.0-0.2); LYMPHOCYTES # (AUTO) 1.9 X10^3/uL (1.3-2.9)
[2021-08-24 07:06] LABS: BASOPHILS % (AUTO) 0.7 % (0.2-1.0); EOSINOPHILS % (AUTO) 4.2 % (0.9-2.9); HEMATOCRIT 30.5 % (36.0-47.0); HEMOGLOBIN 10.1 g/dL (12.0-16.0); MEAN CORPUSCULAR HEMOGLOBIN 28.4 pg (27.0-34.0); MEAN CORPUSCULAR HGB CONC 33.2 g/dL (33.0-35.0); MEAN CORPUSCULAR VOLUME 85.5 fL (80.0-100.0); MEAN PLATELET VOLUME 8.4 fL (7.4-11.0); MONOCYTES # (AUTO) 0.7 x10^3/uL (0.3-0.8); MONOCYTES % (AUTO) 7.7 % (0.0-13.0); NEUTROPHILS # (AUTO) 5.7 x10^3/uL (2.2-4.8); NEUTROPHILS % (AUTO) 65.4 % (42.0-75.0); RED BLOOD COUNT 3.56 X10^6/uL (3.5-5.4); RED CELL DISTRIBUTION WIDTH 15.3 % (11.6-16.5); WHITE BLOOD COUNT 8.7 X10^3/uL (3.6-10.0)
[2021-08-24 07:15] LABS: ALANINE AMINOTRANSFERASE 13 Units/L (12-78); ALBUMIN 2.4 g/dL (3.4-5.0); ALKALINE PHOSPHATASE 89 Units/L (46-116); ASPARTATE AMINO TRANSFERASE 9 Units/L (15-37); BLOOD UREA NITROGEN 16 mg/dL (7-18); CALCIUM 8.1 mg/dL (8.5-10.1); CARBON DIOXIDE 32.5 mmol/L (21-32); CHLORIDE 102 mmol/L (98-107); COR CA(FOR HYPOALB) 9.4 mg/dL (8.5-10.1); CREATININE 0.97 mg/dL (0.55-1.02); SODIUM 140 mmol/L (136-145); eGFR NON BLACK RACES > 60 (>60)
[2021-08-24] MEDS: PEPCID TAB 40 MG PO SCH (08:40)
[2021-08-24] MEDS: LOPRESSOR TAB 50 MG PO SCH (08:40)
[2021-08-24] MEDS: PROTONIX TAB 40 MG PO SCH (08:40)
[2021-08-24] MEDS: LYRICA CAP 150 mg PO SCH ×2 (08:40→21:22)
[2021-08-24] MEDS: SYNTHROID 100 mcg TAB PO SCH (08:40)
[2021-08-24 08:58] LABS: BASOPHILS % (MANUAL) 5 % (0-1); PLATELET MORPHOLOGY COMMENT NORMAL (NORMAL)
[2021-08-24 09:03] LABS: STOMATOCYTES SLIGHT
--- NOTE | 2021-08-24 11:41 | PCM.PROG ---
Progress Note Progress Note for Day of Date of Exam: 08/24/21 Subjective Subjective: Mrs. Cramer is a 61 yo female who is s/p left LE surgery, DOS was 08/23. She is doing well with decreased pain. She denies any f/c/n/v/sob/calf pain. Past Medical Family Social History Past Med/Fam/Surg Hx: No changes since H&P Allergies: Allergies No Known Drug Allergies Allergy (Verified 08/22/21 17:38) Review of Systems ROS: No change since H&P Vital Signs and I&O's Vital Signs: Temperature 98.4 F Pulse Rate [Left] 67 Pulse Rate 63 Respiratory Rate 18 Blood Pressure [Left Arm] 117/62 O2 Sat by Pulse Oximetry 94 Intake and Output: Intake & Output 08/21/21 08/22/21 08/23/21 08/24/21 23:59 23:59 23:59 23:59 Intake Total 120 / 120 1969 / 1969 756 / 756 Output Total 10 / 10 Balance 120 / 120 1959 756 / 756 Physical Exam Oriented: Normal, Time, Person and Place Eyes: Normal Ear: Normal Nose: Normal Throat: Normal Respiratory: Normal Cardiovascular: Normal : Normal Auscultation: Bowel Sounds: Normal Tenderness: Normal Skin: Normal Musculoskeletal: Normal Psychiatric: Normal Mood Description: Calm Affect: Normal Speech Pattern: Clear and Appropriate Laboratory and Diagnostics Result Diagrams: 08/24/21 06:20 08/24/21 06:20 Labs: 08/23/21 11:52 Leg - Left Wound Gram Stain - Final 08/23/21 11:52 Leg - Left Wound Culture - Preliminary 08/22/21 18:15 Leg - Left Wound Gram Stain - Final 08/22/21 18:15 Leg - Left Wound Culture - Preliminary 08/22/21 18:15 Blood Blood Culture - Preliminary 08/22/21 18:07 Blood Blood Culture - Preliminary Laboratory WBC 8.7 X10^3/uL (3.6-10.0) 08/24/21 06:20 RBC 3.56 X10^6/uL (3.5-5.4) 08/24/21 06:20 Hgb 10.1 g/dL (12.0-16.0) L 08/24/21 06:20 Hct 30.5 % (36.0-47.0) L 08/24/21 06:20 MCV 85.5 fL (80.0-100.0) 08/24/21 06:20 MCH 28.4 pg (27.0-34.0) 08/24/21 06:20 MCHC 33.2 g/dL (33.0-35.0) 08/24/21 06:20 RDW 15.3 % (11.6-16.5) 08/24/21 06:20 Plt Count 276 X10^3/uL (150.0-450.0) 08/24/21 06:20 Plt Count Comment Adequate (ADEQUATE) 08/24/21 06:20 MPV 8.4 fL (7.4-11.0) 08/24/21 06:20 Neut % (Auto) 65.4 % (42.0-75.0) 08/24/21 06:20 Lymph % (Auto) 22.0 % (21.0-51.0) 08/24/21 06:20 [place] % (Auto) 7.7 % (0.0-13.0) 08/24/21 06:20 Eos % (Auto) 4.2 % (0.9-2.9) H 08/24/21 06:20 Baso % (Auto) 0.7 % (0.2-1.0) 08/24/21 06:20 Neut # (Auto) 5.7 x10^3/uL (2.2-4.8) H 08/24/21 06:20 Lymph # (Auto) 1.9 X10^3/uL (1.3-2.9) 08/24/21 06:20 [place] # (Auto) 0.7 x10^3/uL (0.3-0.8) 08/24/21 06:20 Eos # (Auto) 0.4 x10^3/uL (0.0-0.2) H 08/24/21 06:20 Baso # (Auto) 0.1 X10^3/uL (0.0-0.1) 08/24/21 06:20 Absolute Nucleated RBC 0.0 /100WBC 08/24/21 06:20 Total Counted 100 08/24/21 06:20 Neutrophils % (Manual) 72 % (39-76) 08/24/21 06:20 Lymphocytes % (Manual) 15 % (13-43) 08/24/21 06:20 Monocytes % (Manual) 7 % (4-9) 08/24/21 06:20 Eosinophils % (Manual) 1 % (0-6) 08/24/21 06:20 Basophils % (Manual) 5 % (0-1) H 08/24/21 06:20 Plt Morphology Comment Normal (NORMAL) 08/24/21 06:20 RBC Morphology Abnormal (NORMAL) A 08/24/21 06:20 Stomatocytes Slight A 08/24/21 06:20 Sodium 140 mmol/L (136-145) 08/24/21 06:20 Corrected Sodium TNP 08/24/21 06:20 Potassium 3.5 mmol/L (3.5-5.1) 08/24/21 06:20 Chloride 102 mmol/L (98-107) 08/24/21 06:20 Carbon Dioxide 32.5 mmol/L (21-32) H 08/24/21 06:20 BUN 16 mg/dL (7-18) 08/24/21 06:20 Creatinine 0.97 mg/dL (0.55-1.02) 08/24/21 06:20 Est GFR (MDRD) Af Amer > 60 (>60) 08/24/21 06:20 Est GFR (MDRD) Non-Af > 60 (>60) 08/24/21 06:20 Glucose 83 mg/dL (65-99) 08/24/21 06:20 Lactic Acid 1.4 mmol/L (0.4-2.0) 08/22/21 18:07 Calcium 8.1 mg/dL (8.5-10.1) L 08/24/21 06:20 Corrected Calcium 9.4 mg/dL (8.5-10.1) 08/24/21 06:20 Total Bilirubin 0.20 mg/dL (0.2-1.0) 08/24/21 06:20 AST 9 Units/L (15-37) L 08/24/21 06:20 ALT 13 Units/L (12-78) 08/24/21 06:20 Alkaline Phosphatase 89 Units/L (46-116) 08/24/21 06:20 C-Reactive Protein 66.00 mg/L (0-3.0) H 08/24/21 06:20 Total Protein 6.0 g/dL (6.4-8.2) L 08/24/21 06:20 Albumin 2.4 g/dL (3.4-5.0) L 08/24/21 06:20 Globulin 3.6 g/dL (2.5-4.5) 08/24/21 06:20 Albumin/Globulin Ratio 0.7 Ratio (1.1-2.1) L 08/24/21 06:20 Specimen Type Clean catch urine 08/22/21 18:15 Urine Color Yellow (YELLOW) 08/22/21 18:15 Urine Appearance Clear (CLEAR) 08/22/21 18:15 Urine pH 7.0 (5.0 - 8.0) 08/22/21 18:15 Ur Specific [place] 1.005 (1.000-1.030) 08/22/21 18:15 Urine Protein Negative (NEGATIVE) 08/22/21 18:15 Urine Glucose (UA) Negative (NEGATIVE) 08/22/21 18:15 Urine Ketones Negative (NEGATIVE) 08/22/21 18:15 Urine Blood Negative (NEGATIVE) 08/22/21 18:15 Urine Nitrite Negative (NEGATIVE) 08/22/21 18:15 Urine Bilirubin Negative (NEGATIVE) 08/22/21 18:15 Urine Urobilinogen Normal (NORMAL) 08/22/21 18:15 Ur Leukocyte Esterase Negative (NEGATIVE) 08/22/21 18:15 SARS CoV-2 RNA Rapid LINDA Negative (NEGATIVE) 08/22/21 18:06 Plan (1) Cellulitis of left leg: Status: Acute Plan: Mrs. Cramer is a 61 yo female is s/p left LE exfix removal, DOS is a 08/23. Patient was admitted for cellulitis. The erythema and edema are decreased since yesterday. She is with VSS and NAD. No leukoctysis. Plan: Left LE was redressed with 4x4, cast padding and reese. Elevate x 2 pillows NWB on the left LE Appreciate PT eval. Keep the dressing intact I think the patient would benefit from a few more days of abx. Will monitor Please do not hesitate to contact me with questions or concerns. Tyler Thomas DPM Fellow [phone] (2) Charcot's joint of left ankle: Status: Acute Plan: The patient's printing table worker, Dr. Gonzalez is to see patient later this morning. I would restart the patient's pregabalin 150 mg by mouth twice a day. (3) Hypertension: Status: Acute Plan: Continue metoprolol 50 mg twice a day I will hold the patient triamterene/HCTZ since she is mildly dehydrated. Monitor the patient's blood pressure. (4) Hypothyroidism: Status: Acute Plan: Resume levothyroxine at 200 mcg by mouth daily. (5) GERD (gastroesophageal reflux disease): Status: Acute Plan: I will continue the patient on pantoprazole 40 mg daily and famotidine 40 mg daily.
[2021-08-24] MEDS: LR 1,000 ML IV 1,000 ML IV SCH (15:09)
[2021-08-24] MEDS: EFFEXOR XR 75 MG CAP 24-HR PO SCH (21:22)
[2021-08-25] MEDS: LR 1,000 ML IV 1,000 ML IV SCH ×4 (02:15→21:08)
[2021-08-25] MEDS: DILAUDID INJ IVP PRN ×3 (03:45→20:52)
[2021-08-25] MEDS: ZOSYN VIAL 2.25 GRAMS 2.25 G in NS 100 ML IV 100 ML IV SCH ×4 (04:42→20:52)
[2021-08-25 06:36] LABS: BASOPHILS # (AUTO) 0.1 X10^3/uL (0.0-0.1); BASOPHILS % (AUTO) 0.9 % (0.2-1.0); EOSINOPHILS # (AUTO) 0.4 x10^3/uL (0.0-0.2); EOSINOPHILS % (AUTO) 4.1 % (0.9-2.9); HEMATOCRIT 30.4 % (36.0-47.0); LYMPHOCYTES % (AUTO) 22.6 % (21.0-51.0); MEAN CORPUSCULAR HEMOGLOBIN 28.1 pg (27.0-34.0); MEAN CORPUSCULAR HGB CONC 32.8 g/dL (33.0-35.0); MEAN CORPUSCULAR VOLUME 85.7 fL (80.0-100.0); MEAN PLATELET VOLUME 8.3 fL (7.4-11.0); MONOCYTES # (AUTO) 0.5 x10^3/uL (0.3-0.8); MONOCYTES % (AUTO) 5.6 % (0.0-13.0); NEUTROPHILS % (AUTO) 66.8 % (42.0-75.0); RED BLOOD COUNT 3.54 X10^6/uL (3.5-5.4)
[2021-08-25 06:49] LABS: ALANINE AMINOTRANSFERASE 12 Units/L (12-78); ALBUMIN 2.4 g/dL (3.4-5.0); ALKALINE PHOSPHATASE 88 Units/L (46-116); ASPARTATE AMINO TRANSFERASE 10 Units/L (15-37); BLOOD UREA NITROGEN 14 mg/dL (7-18); CALCIUM 8.4 mg/dL (8.5-10.1); CARBON DIOXIDE 31.2 mmol/L (21-32); CHLORIDE 102 mmol/L (98-107); COR CA(FOR HYPOALB) 9.7 mg/dL (8.5-10.1); CREATININE 0.93 mg/dL (0.55-1.02); SODIUM 139 mmol/L (136-145); TOTAL PROTEIN 6.1 g/dL (6.4-8.2); eGFR NON BLACK RACES > 60 (>60)
[2021-08-25] MEDS: SYNTHROID 100 mcg TAB PO SCH (08:30)
[2021-08-25] MEDS: PROTONIX TAB 40 MG PO SCH (08:30)
[2021-08-25] MEDS: LYRICA CAP 150 mg PO SCH ×2 (08:30→20:51)
[2021-08-25] MEDS: PEPCID TAB 40 MG PO SCH (08:30)
[2021-08-25] MEDS: LOPRESSOR TAB 50 MG PO SCH (08:30)
[2021-08-25] MEDS ORDERED: VANCOMYCIN IV *PREMIX 1.5 G/300 ML BAG 1.5 G/300 ML PIGGYBACK IV ONE (12:00)
[2021-08-25] MEDS ORDERED: PHARMACY CONSULT - VANCOMYCIN XX SCH (12:00)
[2021-08-25] MEDS: EFFEXOR XR 75 MG CAP 24-HR PO SCH (20:51)
[2021-08-25] MEDS: VANCOMYCIN IV *PREMIX 1.5 G/300 ML BAG 1.5 G/300 ML PIGGYBACK IV SCH (20:57)
[2021-08-26] MEDS: DILAUDID INJ IVP PRN ×2 (00:55→05:00)
[2021-08-26] MEDS: ZOSYN VIAL 2.25 GRAMS 2.25 G in NS 100 ML IV 100 ML IV SCH ×2 (04:21→11:25)
[2021-08-26 05:56] LABS: BASOPHILS # (AUTO) 0.1 X10^3/uL (0.0-0.1); BASOPHILS % (AUTO) 0.7 % (0.2-1.0); EOSINOPHILS # (AUTO) 0.3 x10^3/uL (0.0-0.2); EOSINOPHILS % (AUTO) 3.3 % (0.9-2.9); HEMATOCRIT 31.5 % (36.0-47.0); HEMOGLOBIN 10.3 g/dL (12.0-16.0); LYMPHOCYTES # (AUTO) 1.9 X10^3/uL (1.3-2.9); LYMPHOCYTES % (AUTO) 20.6 % (21.0-51.0); MEAN CORPUSCULAR HGB CONC 32.8 g/dL (33.0-35.0); MEAN CORPUSCULAR VOLUME 85.4 fL (80.0-100.0); MEAN PLATELET VOLUME 8.4 fL (7.4-11.0); MONOCYTES # (AUTO) 0.6 x10^3/uL (0.3-0.8); MONOCYTES % (AUTO) 6.2 % (0.0-13.0); NEUTROPHILS # (AUTO) 6.3 x10^3/uL (2.2-4.8); NEUTROPHILS % (AUTO) 69.2 % (42.0-75.0); RED BLOOD COUNT 3.69 X10^6/uL (3.5-5.4); RED CELL DISTRIBUTION WIDTH 15.1 % (11.6-16.5)
[2021-08-26 06:09] LABS: ALANINE AMINOTRANSFERASE 13 Units/L (12-78); ALBUMIN 2.8 g/dL (3.4-5.0); ALKALINE PHOSPHATASE 94 Units/L (46-116); ASPARTATE AMINO TRANSFERASE 12 Units/L (15-37); BLOOD UREA NITROGEN 16 mg/dL (7-18); CALCIUM 8.9 mg/dL (8.5-10.1); CARBON DIOXIDE 30.5 mmol/L (21-32); CHLORIDE 102 mmol/L (98-107); COR CA(FOR HYPOALB) 9.9 mg/dL (8.5-10.1); CREATININE 0.99 mg/dL (0.55-1.02); SODIUM 139 mmol/L (136-145); TOTAL PROTEIN 6.7 g/dL (6.4-8.2); eGFR NON BLACK RACES > 60 (>60)
[2021-08-26] MEDS: LR 1,000 ML IV 1,000 ML IV SCH (06:25)
--- NOTE | 2021-08-26 06:39 | PCM.PROG ---
Progress Note Progress Note for Day of Date of Exam: 08/26/21 Subjective Subjective: Mrs. Cramer is a 61 yo female who is s/p left LE surgery, DOS was 08/23. She is doing well with no pain. She denies any f/c/n/v/sob/calf pain. Past Medical Family Social History Past Med/Fam/Surg Hx: No changes since H&P Allergies: Allergies No Known Drug Allergies Allergy (Verified 08/22/21 17:38) Review of Systems ROS: No change since H&P Vital Signs and I&O's Vital Signs: Temperature 98.1 F Pulse Rate [Left] 65 Pulse Rate 63 Respiratory Rate 19 Blood Pressure [Left Arm] 179/77 O2 Sat by Pulse Oximetry 99 Intake and Output: Intake & Output 08/23/21 08/24/21 08/25/21 08/26/21 23:59 23:59 23:59 23:59 Intake Total 1969 / 1969 3156 / 3156 2310 / 2310 Output Total Balance 1959 3156 / 3156 2310 / 2310 Physical Exam Oriented: Normal, Time, Person and Place Eyes: Normal Ear: Normal Nose: Normal Throat: Normal Respiratory: Normal Cardiovascular: Normal : Normal Auscultation: Bowel Sounds: Normal Tenderness: Normal Skin: Other (Decreased erythema and edema. Posterior leg wound is decreased in size. Measures 2.0 x 1.2 cm. Fibrotic base. No drainage. ) Musculoskeletal: Normal Psychiatric: Normal Mood Description: Calm Affect: Normal Speech Pattern: Clear and Appropriate Laboratory and Diagnostics Result Diagrams: 08/26/21 05:13 08/26/21 05:31 Labs: 08/22/21 18:15 Leg - Left Wound Gram Stain - Final 08/22/21 18:15 Leg - Left Wound Culture - Final Methicillin Resis Staph Aureus Morganella Morganii 08/23/21 11:52 Leg - Left Wound Gram Stain - Final 08/23/21 11:52 Leg - Left Wound Culture - Final Morganella Morganii Methicillin Resis Staph Aureus 08/22/21 18:15 Blood Blood Culture - Preliminary 08/22/21 18:07 Blood Blood Culture - Preliminary Laboratory WBC 9.0 X10^3/uL (3.6-10.0) 08/26/21 05:13 RBC 3.69 X10^6/uL (3.5-5.4) 08/26/21 05:13 Hgb 10.3 g/dL (12.0-16.0) L 08/26/21 05:13 Hct 31.5 % (36.0-47.0) L 08/26/21 05:13 MCV 85.4 fL (80.0-100.0) 08/26/21 05:13 MCH 28.0 pg (27.0-34.0) 08/26/21 05:13 MCHC 32.8 g/dL (33.0-35.0) L 08/26/21 05:13 RDW 15.1 % (11.6-16.5) 08/26/21 05:13 Plt Count 318 X10^3/uL (150.0-450.0) 08/26/21 05:13 Plt Count Comment Adequate (ADEQUATE) 08/24/21 06:20 MPV 8.4 fL (7.4-11.0) 08/26/21 05:13 Neut % (Auto) 69.2 % (42.0-75.0) 08/26/21 05:13 Lymph % (Auto) 20.6 % (21.0-51.0) L 08/26/21 05:13 [place] % (Auto) 6.2 % (0.0-13.0) 08/26/21 05:13 Eos % (Auto) 3.3 % (0.9-2.9) H 08/26/21 05:13 Baso % (Auto) 0.7 % (0.2-1.0) 08/26/21 05:13 Neut # (Auto) 6.3 x10^3/uL (2.2-4.8) H 08/26/21 05:13 Lymph # (Auto) 1.9 X10^3/uL (1.3-2.9) 08/26/21 05:13 [place] # (Auto) 0.6 x10^3/uL (0.3-0.8) 08/26/21 05:13 Eos # (Auto) 0.3 x10^3/uL (0.0-0.2) H 08/26/21 05:13 Baso # (Auto) 0.1 X10^3/uL (0.0-0.1) 08/26/21 05:13 Absolute Nucleated RBC 0.1 /100WBC 08/26/21 05:13 Total Counted 100 08/24/21 06:20 Neutrophils % (Manual) 72 % (39-76) 08/24/21 06:20 Lymphocytes % (Manual) 15 % (13-43) 08/24/21 06:20 Monocytes % (Manual) 7 % (4-9) 08/24/21 06:20 Eosinophils % (Manual) 1 % (0-6) 08/24/21 06:20 Basophils % (Manual) 5 % (0-1) H 08/24/21 06:20 Plt Morphology Comment Normal (NORMAL) 08/24/21 06:20 RBC Morphology Abnormal (NORMAL) A 08/24/21 06:20 Stomatocytes Slight A 08/24/21 06:20 Sodium 139 mmol/L (136-145) 08/26/21 05:31 Corrected Sodium TNP 08/26/21 05:31 Potassium 4.0 mmol/L (3.5-5.1) 08/26/21 05:31 Chloride 102 mmol/L (98-107) 08/26/21 05:31 Carbon Dioxide 30.5 mmol/L (21-32) 08/26/21 05:31 BUN 16 mg/dL (7-18) 08/26/21 05:31 Creatinine 0.99 mg/dL (0.55-1.02) 08/26/21 05:31 Est GFR (MDRD) Af Amer > 60 (>60) 08/26/21 05:31 Est GFR (MDRD) Non-Af > 60 (>60) 08/26/21 05:31 Glucose 91 mg/dL (65-99) 08/26/21 05:31 Lactic Acid 1.4 mmol/L (0.4-2.0) 08/22/21 18:07 Calcium 8.9 mg/dL (8.5-10.1) 08/26/21 05:31 Corrected Calcium 9.9 mg/dL (8.5-10.1) 08/26/21 05:31 Total Bilirubin 0.30 mg/dL (0.2-1.0) 08/26/21 05:31 AST 12 Units/L (15-37) L 08/26/21 05:31 ALT 13 Units/L (12-78) 08/26/21 05:31 Alkaline Phosphatase 94 Units/L (46-116) 08/26/21 05:31 C-Reactive Protein 66.00 mg/L (0-3.0) H 08/24/21 06:20 Total Protein 6.7 g/dL (6.4-8.2) 08/26/21 05:31 Albumin 2.8 g/dL (3.4-5.0) L 08/26/21 05:31 Globulin 3.9 g/dL (2.5-4.5) 08/26/21 05:31 Albumin/Globulin Ratio 0.7 Ratio (1.1-2.1) L 08/26/21 05:31 Specimen Type Clean catch urine 08/22/21 18:15 Urine Color Yellow (YELLOW) 08/22/21 18:15 Urine Appearance Clear (CLEAR) 08/22/21 18:15 Urine pH 7.0 (5.0 - 8.0) 08/22/21 18:15 Ur Specific [place] 1.005 (1.000-1.030) 08/22/21 18:15 Urine Protein Negative (NEGATIVE) 08/22/21 18:15 Urine Glucose (UA) Negative (NEGATIVE) 08/22/21 18:15 Urine Ketones Negative (NEGATIVE) 08/22/21 18:15 Urine Blood Negative (NEGATIVE) 08/22/21 18:15 Urine Nitrite Negative (NEGATIVE) 08/22/21 18:15 Urine Bilirubin Negative (NEGATIVE) 08/22/21 18:15 Urine Urobilinogen Normal (NORMAL) 08/22/21 18:15 Ur Leukocyte Esterase Negative (NEGATIVE) 08/22/21 18:15 SARS CoV-2 RNA Rapid LINDA Negative (NEGATIVE) 08/22/21 18:06 Plan (1) Cellulitis of left leg: Status: Acute Plan: Mrs. Cramer is a 61 yo female is s/p left LE exfix removal, DOS is a 08/23. Patient was admitted for cellulitis. The erythema and edema are decreased since yesterday. No pain. She is with VSS and NAD. No leukoctysis. Plan: Left LE was redressed with 4x4, cast padding and reese. Elevate x 2 pillows NWB on the left LE Appreciate PT eval. Keep the dressing intact Ok for d/c from the foot and ankle stand point. Rx's in the chart. Patient will need daily dressing change. She will require home health with dressing change x3 a week Will monitor Please do not hesitate to contact me with questions or concerns. Tyler Thomas DPM Fellow [phone] (2) Charcot's joint of left ankle: Status: Acute Plan: The patient's glass presser, Dr. Gonzalez is to see patient later this morning. I would restart the patient's pregabalin 150 mg by mouth twice a day. (3) Hypertension: Status: Acute Plan: Continue metoprolol 50 mg twice a day I will hold the patient triamterene/HCTZ since she is mildly dehydrated. Monitor the patient's blood pressure. (4) Hypothyroidism: Status: Acute Plan: Resume levothyroxine at 200 mcg by mouth daily. (5) GERD (gastroesophageal reflux disease): Status: Acute Plan: I will continue the patient on pantoprazole 40 mg daily and famotidine 40 mg daily.
[2021-08-26] MEDS: PROTONIX TAB 40 MG PO SCH (08:41)
[2021-08-26] MEDS: LYRICA CAP 150 mg PO SCH (08:41)
[2021-08-26] MEDS: LOPRESSOR TAB 50 MG PO SCH (08:41)
[2021-08-26] MEDS: SYNTHROID 100 mcg TAB PO SCH (08:42)
[2021-08-26] MEDS: PEPCID TAB 40 MG PO SCH (08:42)
[2021-08-26] MEDS: VANCOMYCIN IV *PREMIX 1.5 G/300 ML BAG 1.5 G/300 ML PIGGYBACK IV SCH (08:45)
[2021-08-26 09:27] VITALS: BP 164/70
[2021-08-27] MEDS ORDERED: PHARMACY COMMENT IV NR (08:30)
== END 2021-08-26 11:50 | disposition home or self-care (01) | DRG 603 ==
LOC: ER 17:38 → MED/SURG 17:38 → OBSVTOIN 21:38 → MED/SURG 21:46
PROVIDERS: ADMIT Family Medicine; ATTEND Obstetrics & Gynecology Obstetrics
DX: M14.672 Charcot's joint, left ankle and foot; Z20.822 Contact with and (suspected) exposure to COVID-19; I10 Essential (primary) hypertension; E03.8 Other specified hypothyroidism; L03.116 Cellulitis of left lower limb; R26.89 Other abnormalities of gait and mobility; B96.4 Proteus (mirabilis) (morganii) as the cause of diseases classified elsewhere; B95.62 Methicillin resistant Staphylococcus aureus infection as the cause of diseases classified elsewhere; K21.9 Gastro-esophageal reflux disease without esophagitis; R79.82 Elevated C-reactive protein (CRP); E11.610 Type 2 diabetes mellitus with diabetic neuropathic arthropathy